=== PATIENT | male | born 1960 | race Caucasian/White ===

== ENCOUNTER 2017-03-19 14:02 | Day surgery (SDC) | payer OTHER ==
[~2017-03-19 14:02] MED LIST: CEFAZOLIN 2 GM/50 ML (PMX) 50 ML IVPB; SOD CHLORIDE 0.9% 1,000 ML IV
[2017-03-19 14:42] LABS: ADD MAN DIFF? NO
[2017-03-19 14:56] LABS: BASOPHILS % 0.8 % (0.0-2.0); EOSINOPHILS # 0.3 10^3/ul (0.0-0.5); EOSINOPHILS % 6.7 % (0.0-7.0); HEMATOCRIT 36.2 % (42.0-52.0); HEMOGLOBIN 12.1 g/dl (14.0-18.0); LYMPHOCYTES # 1.3 10^3/ul (0.8-2.9); LYMPHOCYTES % 34.5 % (15.0-51.0); MEAN CORPUSCULAR HEMOGLOBIN 30.1 pg (29.0-33.0); MEAN CORPUSCULAR HGB CONC 33.4 g/dl (32.0-37.0); MEAN PLATELET VOLUME 9.4 fl (7.4-10.4); MONOCYTE # 0.4 10^3/ul (0.3-0.9); NEUTROPHIL # 1.8 10^3/ul (1.6-7.5); NEUTROPHILS % 47.7 % (39.0-77.0); PLATELET COUNT 316 10^3/UL (140-415); RED BLOOD COUNT 4.02 10^6/ul (4.70-6.10); RED CELL DISTRIBUTION WIDTH 11.8 % (11.5-14.5)
[2017-03-19 14:56] LABS: WHITE BLOOD COUNT 3.7 10^3/ul (4.8-10.8)
[2017-03-19 15:01] LABS: HOLD TRANSMISSIONS 1
[2017-03-19 15:03] LABS: ALANINE AMINOTRANSFERASE 39 IU/L (13-69); ALBUMIN 4.2 g/dl (3.3-4.9); ALBUMIN/GLOBULIN RATIO 1.55; ALKALINE PHOSPHATASE 56 IU/L (42-121); ANION GAP 15 (8-16); ASPARTATE AMINO TRANSFERASE 30 IU/L (15-46); BILIRUBIN,INDIRECT 0.3 mg/dl (0-1.1); BILIRUBIN,TOTAL 0.3 mg/dl (0.2-1.3); CARBON DIOXIDE 25 mmol/L (21-31); CHLORIDE 104 mmol/L (97-110); GLUCOSE 96 mg/dl (70-220); TOTAL PROTEIN 6.9 g/dl (6.1-8.1)
[2017-03-19 15:27] LABS: INR 0.92; PROTIME 12.4 Sec (11.9-14.9)
[2017-03-19 15:28] LABS: PARTIAL THROMBOPLASTIN TIME 28.5 Sec (25.0-35.0)
[2017-03-19] MEDS ORDERED: HYDROmorphONE (0.2 MG/ML) 10ML SYG IV ×3 (15:30)
[2017-03-19] MEDS ORDERED: FENTAnyl 50 MCG/ML VIAL IV ×2 (15:30)
[2017-03-19] MEDS ORDERED: ONDANSETRON 4 MG INJ IV (15:30)
[2017-03-19] MEDS ORDERED: DIPHENHYDRAMINE 50 MG INJ IV (15:30)
[2017-03-19] MEDS ORDERED: METOCLOPRAMIDE 10 MG INJ IV (15:30)
[2017-03-19] MEDS ORDERED: MEPERIDINE 25 MG INJ IV (15:30)
[2017-03-19 15:56] LABS: POTASSIUM 4.8 mmol/L (3.5-5.1); SODIUM 139 mmol/L (135-144)
[2017-03-19 15:57] LABS: BLOOD UREA NITROGEN 21 mg/dl (7-20); CALCIUM 8.8 mg/dl (8.4-10.2); CREATININE 0.72 mg/dl (0.61-1.24)
[2017-03-19] MEDS ORDERED: LIDOCAINE 100 MG SYRINGE (16:14)
[2017-03-19] MEDS ORDERED: PROPOFOL 20 ML (16:14)
[2017-03-19] MEDS ORDERED: ROPIVACAINE 0.5 % 30 ML VIAL (16:14)
[2017-03-19] MEDS ORDERED: ROCURONIUM 50 MG INJ (16:14)
[2017-03-19] MEDS ORDERED: FENTAnyl 50 MCG/ML VIAL (16:14)
[2017-03-19] MEDS ORDERED: SUCCINYLCHOLINE CHLORIDE 100 MG/5 ML SYG IV (16:14)
[2017-03-19] MEDS ORDERED: CEFAZOLIN 1 GM INJ (16:14)
[2017-03-19] MEDS ORDERED: SUGAMMADEX SODIUM 200 MG/2 ML VIAL IV (16:14)
[2017-03-19] MEDS: BUPIVACAINE 0.25% (MPF) 30 ML INJ (16:42)
[2017-03-19] MEDS: POLYMYXIN/BACITRACIN 1L IRRIG (16:42)
[2017-03-19] MEDS ORDERED: HYDROCODONE/APAP (5/325) TAB PO (17:30)
== END 2017-03-19 19:10 | disposition home or self-care (01) ==
LOC: SDS 14:02
DX: K40.90 Unilateral inguinal hernia, without obstruction or gangrene, not specified as recurrent (principal)
CPT/HCPCS: 49507; 80053; 85025; 85610; 85730